=== PATIENT | female | born 1975 | race Two or more races ===

== ENCOUNTER 2022-01-03 00:08 | Emergency (ER) | payer OTHER ==
[~2022-01-03] VITALS: Ht 152.4 cm; Wt 53.1 kg
[2022-01-03 00:28] VITALS: BP 132/72
== END 2022-01-03 02:24 | disposition left against medical advice (07) ==
LOC: ER 00:08
DX: Z53.21 Procedure and treatment not carried out due to patient leaving prior to being seen by health care provider (principal); I49.9 Cardiac arrhythmia, unspecified
CPT/HCPCS: 93005